=== PATIENT | female | born 1945 | race Caucasian/White ===

== ENCOUNTER 2022-05-29 13:18 | Observation (INO) ==
[2022-05-29] MEDS ORDERED: Ondansetron 4 mg VIAL 2 MG/ML 2 ml VIAL IV ONE (14:44)
[2022-05-29] MEDS ORDERED: Morphine 4 MG/ML VIAL (1 ml) IV ONE (14:44)
[2022-05-29 15:39] LABS: ABS Basophils 0.1 10^3/ul (0-0.2); ABS Eosinophils 0.2 10^3/ul (0-0.6); ABS Lymphocytes 1.2 10^3/ul (1.0-4.8); ABS Monocytes 0.9 10^3/ul (0-0.8); ABS Neutrophils 10.2 10^3/ul (1.5-7.7); Eosinophil % 1.5 %; Hematocrit 45 % (35-47); Hemoglobin 15.1 g/dL (12.0-16.0); Lymphocyte % 9.4 %; Mean Corpuscular HGB Conc 34 g/dL (31-36); Mean Corpuscular Hemoglobin 32 pg (27-31); Mean Corpuscular Volume 95 fL (80-97); Mean Platelet Volume 8.4 fL (7.4-10.4); Platelet Count 455 10^3/uL (150-450); Red Blood Count 4.72 10^6 /uL (3.70-4.87); Red Cell Distribution Width 14 % (10-15); White Blood Count 12.5 10^3/uL (3.5-10.8)
[2022-05-29 16:30] LABS: Albumin 4.4 g/dL (3.2-5.2); Albumin/Globulin Ratio 1.8 (1-3); Calcium 9.5 mg/dL (8.6-10.3); Globulin 2.5 g/dL (2-4); Potassium 4.6 mmol/L (3.5-5.0); Total Bilirubin 1.8 mg/dL (0.2-1.0); Total Protein 6.9 g/dL (6.4-8.9); eGFR CKD-EPI 66.3 (>60)
[2022-05-29 16:47] LABS: Activated Partial Thrombo Time 35.8 seconds (26.0-38.0); INR 1.14 (0.88-1.18)
[2022-05-29] MEDS ORDERED: fentaNYL 100 mcg/2 ml 50 MCG/ML VIAL IV SLOW PU ONE (17:18)
[2022-05-29 19:20] LABS: C Reactive Protein 1.2 mg/L (<8.01)
[2022-05-29] MEDS ORDERED: Enoxaparin 40 MG/0.4 ML SYR SUBCUT SCH (21:00)
[2022-05-29] MEDS ORDERED: Heparin 5000 UNITS/ML 1 mL VIAL SUBCUT ONE (21:33)
[2022-05-29] MEDS: Senna TAB 8.6 mg TAB PO SCH (21:43)
[2022-05-29 22:42] LABS: Vitamin D Total 25(OH) 35.4 ng/mL (20-50)
[2022-05-30 05:29] LABS: ABS Basophils 0.2 10^3/ul (0-0.2); ABS Eosinophils 0.2 10^3/ul (0-0.6); ABS Lymphocytes 2.2 10^3/ul (1.0-4.8); ABS Monocytes 0.9 10^3/ul (0-0.8); ABS Neutrophils 8.9 10^3/ul (1.5-7.7); Eosinophil % 1.6 %; Hematocrit 40 % (35-47); Hemoglobin 14.1 g/dL (12.0-16.0); Lymphocyte % 17.4 %; Mean Corpuscular HGB Conc 35 g/dL (31-36); Mean Corpuscular Hemoglobin 32 pg (27-31); Mean Corpuscular Volume 93 fL (80-97); Mean Platelet Volume 8.1 fL (7.4-10.4); Platelet Count 389 10^3/uL (150-450); Red Blood Count 4.33 10^6 /uL (3.70-4.87); Red Cell Distribution Width 14 % (10-15); White Blood Count 12.3 10^3/uL (3.5-10.8)
[2022-05-30 06:04] LABS: Albumin 3.8 g/dL (3.2-5.2); Albumin/Globulin Ratio 1.7 (1-3); Calcium 8.7 mg/dL (8.6-10.3); Globulin 2.2 g/dL (2-4); Potassium 4.3 mmol/L (3.5-5.0); Total Bilirubin 2.1 mg/dL (0.2-1.0); eGFR CKD-EPI 76.5 (>60)
[2022-05-30] MEDS: Nystatin TOP POWDER 15 GM BTL TOPICAL SCH ×3 (08:41→20:47)
[2022-05-30] MEDS: DULoxetine DR 60 mg CAP PO SCH (08:41)
[2022-05-30] MEDS ORDERED: NFT: DAPAGLIFLOZIN 10 MG TAB (NF) PO SCH (09:00)
[2022-05-30] MEDS: Polyethylene Glycol 3350 17 GM PACKET PO SCH (09:29)
[2022-05-30] MEDS: Heparin 5000 UNITS/ML 1 mL VIAL SUBCUT SCH ×2 (14:52→20:47)
[2022-05-30] MEDS: Senna TAB 8.6 mg TAB PO SCH (20:42)
[2022-05-31] MEDS: Heparin 5000 UNITS/ML 1 mL VIAL SUBCUT SCH ×2 (05:13→14:32)
[2022-05-31] MEDS: Lidocaine PATCH 5% PATCH TRANSDERM SCH ×2 (09:13→09:27)
[2022-05-31] MEDS: Polyethylene Glycol 3350 17 GM PACKET PO SCH (09:13)
[2022-05-31] MEDS: DULoxetine DR 60 mg CAP PO SCH (09:14)
[2022-05-31] MEDS: Nystatin TOP POWDER 15 GM BTL TOPICAL SCH ×3 (09:27→21:20)
[2022-05-31] MEDS: Senna TAB 8.6 mg TAB PO SCH (21:19)
[2022-06-01 06:06] LABS: ABS Basophils 0.1 10^3/ul (0-0.2); ABS Eosinophils 0.4 10^3/ul (0-0.6); ABS Lymphocytes 1.7 10^3/ul (1.0-4.8); ABS Monocytes 1.1 10^3/ul (0-0.8); Eosinophil % 4.8 %; Hematocrit 42 % (35-47); Hemoglobin 13.5 g/dL (12.0-16.0); Lymphocyte % 18.8 %; Mean Corpuscular HGB Conc 33 g/dL (31-36); Mean Corpuscular Hemoglobin 31 pg (27-31); Mean Corpuscular Volume 96 fL (80-97); Mean Platelet Volume 8.8 fL (7.4-10.4); Platelet Count 426 10^3/uL (150-450); Red Blood Count 4.32 10^6 /uL (3.70-4.87); Red Cell Distribution Width 14 % (10-15); White Blood Count 9.3 10^3/uL (3.5-10.8)
[2022-06-01 06:23] LABS: Calcium 8.7 mg/dL (8.6-10.3); Magnesium 2.1 mg/dL (1.9-2.7); Potassium 4.6 mmol/L (3.5-5.0)
[2022-06-01] MEDS: Polyethylene Glycol 3350 17 GM PACKET PO SCH (08:40)
[2022-06-01] MEDS: DULoxetine DR 60 mg CAP PO SCH (08:40)
[2022-06-01] MEDS: Nystatin TOP POWDER 15 GM BTL TOPICAL SCH ×2 (09:34→15:02)
[2022-06-01] MEDS: Lidocaine PATCH 5% PATCH TRANSDERM SCH (11:59)
[2022-06-01] MEDS ORDERED: fentaNYL 100 mcg/2 ml 50 MCG/ML VIAL IV PRN (15:44)
[2022-06-01] MEDS ORDERED: Naloxone 0.4 mg VIAL 0.4 mg/ml 1 ml VIAL IV PRN (15:44)
[2022-06-01] MEDS ORDERED: Metoclopramide 5 MG/ML VIAL (10 mg) IV PRN (15:44)
[2022-06-01] MEDS ORDERED: Ondansetron 4 mg VIAL 2 MG/ML 2 ml VIAL IV PRN (15:44)
[2022-06-01] MEDS ORDERED: Buffered Lidocaine 1% SYRIN 1 ml INTRADERM ONE (15:44)
[2022-06-01] MEDS ORDERED: HYDROcodone/ACETAMIN 5/325 mg TAB PO PRN (15:44)
[2022-06-01 15:51] VITALS: BP 127/66
[2022-06-01] MEDS ORDERED: Lactated Ringers 1000 ml BAG 1,000 ML IV SCH (16:00)
[2022-06-01] MEDS ORDERED: Heparin 5000 UNITS/ML 1 mL VIAL SUBCUT SCH ×2 (22:00)
== END 2022-06-01 16:19 | disposition swing bed (61) ==
LOC: EDHOLD 13:18 → ED 13:18 → SUATTDRO 19:44 → EDHOLD 20:51 → MED 21:14
PROVIDERS: ADMIT Internal Medicine; ATTEND Internal Medicine